=== PATIENT | female | born 2000 | race African-American/Black ===

== ENCOUNTER 2018-01-16 12:54 | Emergency (ER) | payer OTHER ==
[~2018-01-16] VITALS: Ht 165.1 cm; Wt 68.0 kg
[~2018-01-16 12:54] MED LIST: PEPCID20 MG PO; PREDNISONE 20 M20 MG PO; VENTOLIN HFA 1818 GM INH
[2018-01-16] MEDS ORDERED: ADVAIR 500-501 EACH INH (13:12)
[2018-01-16] MEDS ORDERED: PROZAC20 MG PO (13:13)
[2018-01-16] MEDS ORDERED: ALLERGY RELIEF10 M5 PO (13:13)
[2018-01-16] MEDS ORDERED: FLOVENT HFA 4444 MCG INH (13:13)
[2018-01-16] MEDS ORDERED: NASONEX17 GM NASAL (13:13)
[2018-01-16] MEDS ORDERED: HEARTBURN RELIE75 MG PO (13:14)
[2018-01-16] MEDS ORDERED: TESSALON PERLE100 MG PO (13:44)
[2018-01-16] MEDS ORDERED: PREDNISONE50 MG PO (13:44)
[2018-01-16 14:41] VITALS: BP 91/49
== END 2018-01-16 14:42 ==
LOC: ER 12:54
DX: J45.901 Unspecified asthma with (acute) exacerbation (principal); Z88.1 Allergy status to other antibiotic agents; Z91.018 Allergy to other foods; Z91.010 Allergy to peanuts; Z88.0 Allergy status to penicillin

== ENCOUNTER 2018-02-16 13:47 | Emergency (ER) | payer OTHER ==
[~2018-02-16] VITALS: Ht 165.1 cm; Wt 69.0 kg
--- NOTE | ~2018-02-16 | EKG ---
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
[~2018-02-16 13:47] MED LIST changes: +ADVAIR 500-501 EACH INH; +ALLERGY RELIEF10 M5 PO; +FLOVENT HFA 4444 MCG INH; +HEARTBURN RELIE75 MG PO; +NASONEX17 GM NASAL; +PREDNISONE50 MG PO; +PROZAC20 MG PO; +TESSALON PERLE100 MG PO
[2018-02-16 15:16] LABS: URINE BILIRUBIN NEGATIVE (Negative); URINE BLOOD NEGATIVE (Negative); URINE CLARITY CLEAR; URINE COLOR YELLOW; URINE GLUCOSE-RANDOM* NEGATIVE (Negative); URINE KETONES 1+ (Negative); URINE LEUKOCYTES 1+ (Negative); URINE NITRITE NEGATIVE (Negative); URINE PROTEIN (DIPSTICK) NEGATIVE (Negative); URINE SPECIFIC GRAVITY >= 1.030 (1.005-1.035); URINE UROBILINOGEN 0.2 E.U./dl (0.2-1.0)
[2018-02-16 15:22] LABS: ABSOLUTE NEUTROPHILS 4.9 thou/uL (1.4-8.2); BASOPHILS 0.6 % (0.0-2.0); EOSINOPHILS 2.2 % (0.0-3.0); HEMATOCRIT 36.4 % (37.0-47.0); HEMOGLOBIN 11.9 gm/dL (12.0-15.0); LYMPHOCYTES 29.1 % (24.0-44.0); MCH 27.5 pg (26.0-34.0); MCHC 32.8 g/dL (28.0-37.0); MCV 83.9 fL (80.0-100.0); MONOCYTES 7.4 % (1.0-8.0); PLATELET COUNT 208 thou/uL (150-400); POLYS 60.7 % (36.0-66.0); RBC 4.34 mil/uL (4.20-5.00); RDW 14.4 % (10.5-14.5)
[2018-02-16 15:28] LABS: CASTS None Seen /LPF (None Seen); CRYSTALS None Seen /LPF (None Seen); SQUAMOUS 4-10 Moderate /LPF (0-3); URINE RBC None Seen /HPF (0-2); URINE WBC >25 Many /HPF (0-5)
[2018-02-16 15:30] LABS: CALCIUM 9.2 mg/dL (8.5-10.1); POTASSIUM 3.5 mmol/L (3.5-5.1)
[2018-02-16 15:36] LABS: ALBUMIN 3.7 g/dL (3.4-5.0); DIRECT BILIRUBIN 0.2 mg/dL (<0.1-0.3); TOTAL BILIRUBIN 0.6 mg/dL (<0.1-1.0); TOTAL PROTEIN 7.6 g/dL (6.4-8.2)
[2018-02-16] MEDS ORDERED: MACROBID 100 M100 M1 PO (16:20)
[2018-02-16 16:40] VITALS: BP 102/66
== END 2018-02-16 16:41 | disposition home or self-care (01) ==
LOC: ER 13:47
PROVIDERS: Nurse Practitioner
DX: N39.0 Urinary tract infection, site not specified (principal); E86.0 Dehydration; J45.909 Unspecified asthma, uncomplicated; Z88.1 Allergy status to other antibiotic agents; Z91.018 Allergy to other foods; Z88.0 Allergy status to penicillin

== ENCOUNTER 2020-01-20 15:33 | Emergency (ER) | payer BC ==
[~2020-01-20] VITALS: Ht 165.1 cm; Wt 66.2 kg
[~2020-01-20 15:33] MED LIST changes: +MACROBID 100 M100 M1 PO
[2020-01-20 16:08] LABS: URINE BILIRUBIN NEGATIVE (Negative); URINE BLOOD NEGATIVE (Negative); URINE CLARITY CLEAR; URINE COLOR YELLOW; URINE GLUCOSE-RANDOM* NEGATIVE (Negative); URINE KETONES NEGATIVE (Negative); URINE LEUKOCYTES-REFLEX 1+ (Negative); URINE NITRITE-REFLEX NEGATIVE (Negative); URINE PROTEIN (DIPSTICK) NEGATIVE (Negative); URINE UROBILINOGEN 0.2 E.U./dl (0.2-1.0)
[2020-01-20] MEDS ORDERED: KEFLEX500 M1 PO (16:13)
[2020-01-20 16:18] LABS: SQUAMOUS >10 Many /LPF (0-3)
[2020-01-20 16:19] LABS: BACTERIA-REFLEX 1-9 Few /HPF (None Seen); CASTS None Seen /LPF (None Seen); CRYSTALS None Seen /LPF (None Seen); URINE RBC None Seen /HPF (0-2)
[2020-01-20 16:41] VITALS: BP 112/68
== END 2020-01-20 16:42 | disposition home or self-care (01) ==
LOC: ER 15:33
PROVIDERS: Physician Assistant
DX: O86.00 Infection of obstetric surgical wound, unspecified (principal); J45.909 Unspecified asthma, uncomplicated; Z98.890 Other specified postprocedural states; Z91.010 Allergy to peanuts; Z91.018 Allergy to other foods; Z88.0 Allergy status to penicillin; Z88.1 Allergy status to other antibiotic agents

== ENCOUNTER 2020-07-06 10:39 | Emergency (ER) | payer BC ==
[~2020-07-06] VITALS: Ht 165.1 cm; Wt 68.0 kg
[~2020-07-06 10:39] MED LIST changes: +KEFLEX500 M1 PO
[2020-07-06 10:50] VITALS: BP 117/64
[2020-07-06] MEDS ORDERED: CLEOCIN HCL300 MG PO (11:14)
[2020-07-06] MEDS ORDERED: CORTISPORIN OTI10 M2 OTIC (11:14)
== END 2020-07-06 11:22 | disposition home or self-care (01) ==
LOC: ER 10:39
DX: J02.9 Acute pharyngitis, unspecified (principal); H66.93 Otitis media, unspecified, bilateral; J45.909 Unspecified asthma, uncomplicated; Z79.899 Other long term (current) drug therapy; Z88.0 Allergy status to penicillin; Z88.1 Allergy status to other antibiotic agents; Z91.010 Allergy to peanuts; Z91.018 Allergy to other foods

== ENCOUNTER 2020-10-26 16:42 | Emergency (ER) | payer BC ==
[~2020-10-26] VITALS: Ht 165.1 cm; Wt 72.6 kg
[~2020-10-26 16:42] MED LIST changes: +CLEOCIN HCL300 MG PO; +CORTISPORIN OTI10 M2 OTIC
[2020-10-26 17:12] LABS: URINE BILIRUBIN NEGATIVE (Negative); URINE BLOOD 3+ (Negative); URINE COLOR YELLOW; URINE GLUCOSE-RANDOM* NEGATIVE (Negative); URINE KETONES TRACE (Negative); URINE NITRITE-REFLEX NEGATIVE (Negative); URINE PROTEIN (DIPSTICK) TRACE (Negative)
[2020-10-26 17:14] LABS: URINE CLARITY HAZY; URINE LEUKOCYTES-REFLEX 3+ (Negative)
[2020-10-26 17:30] LABS: CASTS None Seen /LPF (None Seen); CRYSTALS None Seen /LPF (None Seen); SQUAMOUS 4-10 Moderate /LPF (0-3)
[2020-10-26 17:58] LABS: ABSOLUTE NEUTROPHILS 6.3 thou/uL (1.4-8.2); BASOPHILS 0.6 % (0.0-2.0); EOSINOPHILS 3.2 % (0.0-3.0); HEMATOCRIT 34.8 % (37.0-47.0); HEMOGLOBIN 11.5 gm/dL (12.0-15.0); LYMPHOCYTES 24.1 % (24.0-44.0); MCH 26.7 pg (26.0-34.0); MCV 80.9 fL (80.0-100.0); MONOCYTES 7.4 % (1.0-8.0); PLATELET COUNT 266 thou/uL (150-400); POLYS 64.7 % (36.0-66.0); RDW 15.1 % (10.5-14.5); WBC 9.7 thou/uL (4.0-11.0)
[2020-10-26 18:07] LABS: CALCIUM 9.6 mg/dL (8.5-10.1); CREATININE 0.9 mg/dL (0.6-1.0); POTASSIUM 3.6 mmol/L (3.5-5.1)
[2020-10-26 19:36] VITALS: BP 111/49
== END 2020-10-26 19:47 | disposition home or self-care (01) ==
LOC: ER 16:42
PROVIDERS: Emergency Medicine
DX: N39.0 Urinary tract infection, site not specified (principal); J45.909 Unspecified asthma, uncomplicated; R30.0 Dysuria; Z98.890 Other specified postprocedural states; Z88.1 Allergy status to other antibiotic agents; Z91.018 Allergy to other foods; Z91.010 Allergy to peanuts; Z88.0 Allergy status to penicillin